=== PATIENT | female | born 1985 | race Hispanic/Latino ===

== ENCOUNTER 2018-11-01 08:12 | Outpatient (CLI) | payer BC ==
--- NOTE | 2018-11-01 15:16 | Mammography Report ---
RIGHT DIGITAL DIAGNOSTIC MAMMOGRAM : 11/01/18 08:12:00 CLINICAL: Recalled for asymmetry. COMPARISON:10/14/18 screening FINDINGS: Lateralmedial and spot compression MLO and CC views were performed and are negative. Satisfactory effacement of asymmetries. IMPRESSION: No mammographic evidence of malignancy. BI-RADS CATEGORY: 1 -- Negative RECOMMENDATION: Routine mammographic screening based on ACS guidelines. ACR BI-RADS MAMMOGRAPHIC CODES: 0 = Needs additional imaging evaluation; 1 = Negative; 2 = Benign; 3 = Probably benign; 4 = Suspicious; 5 = Malignant; 6 = Known biopsy-proven malignancy COMMENT: 1. Dense breast tissue, i.e., adenosis, fibrocystic changes, etc., may obscure an underlying neoplasm. 2. Approximately 10% of cancers are not detected with mammography. 3. A negative mammography report should not delay biopsy if a clinically suspicious mass is present. COMMENT: Patient follow-up letters are generated via our [employer] application.
--- NOTE | 2018-11-03 08:26 | Magnetic Resonance Report ---
BILATERAL BREAST MRI WITHOUT AND WITH CONTRAST: 11/01/18 08:12:00 CLINICAL: Family history of breast cancer and a right mammographic asymmetry. COMPARISON:10/14/18 and 11/01/18 mammograms.. TECHNIQUE: Axial 1.0-mm T1 without, axial high resolution 2.0-mm T2 and axial 1.0-mm dynamic Vibrant high-resolution postcontrast T1 fat saturation sequences on a 1.5 Emilee magnet. The examination was performed with an 8 channel dedicated [place] breast coil. Post processing with CAD and subtraction was performed on an [employer] workstation. 14.0 cc of Multihance was injected without incident for the contrast portion of the exam. Consent was obtained prior to the administration of the contrast. FINDINGS: Right: Mild background parenchymal enhancement. No mass or suspicious enhancement. No suspicious lymph nodes. Left: Mild background parenchymal enhancement. An oval smooth minimally enhancing mass at 1 o'clock 4.5 cm from the nipple measures 8.0 x 4.0 x 6.0 mm. It demonstrates heterogeneous enhancement with mixed kinetics, 245% peak enhancement, 83% type I persistent, 17% type II plateau and 0% type III washout waveforms. No other mass or suspicious enhancement. No suspicious lymph nodes. IMPRESSION: 1. Normal right breast. 2. A probably benign 8 x 4 x 6 mm left breast mass at 1 o'clock 4.5 cm from the nipple. 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 Recommend targeted left breast ultrasound for further evaluation. BI-RADS 0 -- Needs Additional Imaging
== END 2018-11-01 08:13 | disposition home or self-care (01) ==
LOC: SPVIMAG 08:12
PROVIDERS: ATTEND Surgery
DX: N63.14 Unspecified lump in the right breast, lower inner quadrant (principal); N63.21 Unspecified lump in the left breast, upper outer quadrant; Z80.3 Family history of malignant neoplasm of breast
CPT/HCPCS: 77065; A9577; C8908; 77049